=== PATIENT | male | born 1950 | race Asian ===

== ENCOUNTER 2023-01-10 08:03 | Day surgery (SDC) | payer OTHER ==
[2023-01-03 15:15] VITALS: BMI 29.2
[2023-01-10 09:47] VITALS: RESP 20; TEMP 97
[2023-01-10 11:40] VITALS: BP 121/63; PULSE 53
== END 2023-01-10 10:10 | disposition home or self-care (01) ==
LOC: FASU-ENDO 08:03
PROVIDERS: ATTEND Internal Medicine Gastroenterology
PROC: 0DBN8ZX Excision of Sigmoid Colon, Via Natural or Artificial Opening Endoscopic, Diagnostic (ICD-10-PCS; 2023-01-10)
PROC: 0DBP8ZX Excision of Rectum, Via Natural or Artificial Opening Endoscopic, Diagnostic (ICD-10-PCS; principal; 2023-01-10 08:57)
DX: Z12.11 Encounter for screening for malignant neoplasm of colon (principal); K63.5 Polyp of colon; K63.89 Other specified diseases of intestine; K57.30 Diverticulosis of large intestine without perforation or abscess without bleeding
CPT/HCPCS: 82962; 88305-TC